=== PATIENT | male | born 1940 | race Caucasian/White ===

== ENCOUNTER 2016-12-26 02:28 | Emergency (ER) | payer OTHER ==
[~2016-12-26] VITALS: Ht 177.8 cm; Wt 87.5 kg
[~2016-12-26 02:28] MED LIST: ADULT LOW DOSE81 MG PO; ASPIRIN BUFFER325 MG PO; ASPIRIN325 PO; AZOR 5-40 MG T1 EACH PO; B12INJ; CARDIZEM CD240 MG PO; CEFTIN 250 MG250 MG PO; COMBIVENT IN; COREG CR20 MG PO; COREG CR40 MG PO; COREG CR80 MG PO; COUMADIN 5 MG TA5 M1 PO; FOLIC ACID 40400 MCG PO; FOLIC ACID0.8 MG PO; FUROSEMIDE 40 M40 M1 PO; FUROSEMIDE 80 M80 M1; GLUCOPHAGE500 MG; HYDROCODON-ACE1 EAC1 PO; K-DUR 20 MEQ T20 MEQ PO; LIPITOR40 MG PO; LISINOPRIL10 MG PO; LIVALO2 MG PO; NEXIUM40 MG PO; POTASSIUM20 PO; PRADAXA150 MG PO; TEKTURNA HCT 31 EACH PO; VENTOLIN HFA 1818 GM INH; VITAMIN B-12500 MCG PO; VITAMIN D35000 UNI1 PO; VITAMIN E400 UNIT PO; ZOFRAN ODT4 MG PO; ZPAK PO
[2016-12-26] MEDS ORDERED: COZAAR 25 MG TA25 M1 PO (02:42)
[2016-12-26] MEDS ORDERED: METFORMIN HCL500 MG PO (02:42)
[2016-12-26] MEDS ORDERED: ALLOPURINOL 30300 M2 PO (02:42)
[2016-12-26] MEDS ORDERED: POTASSIUM CHLO10 MEQ PO (02:42)
[2016-12-26] MEDS ORDERED: LASIX 40 MG TAB40 M2 PO (02:42)
[2016-12-26] MEDS ORDERED: FLOVENT HFA 1110 MCG INH (02:44)
[2016-12-26] MEDS ORDERED: BYSTOLIC 5 MG5 MG PO (02:45)
[2016-12-26] MEDS ORDERED: AMOXICILLIN 50500 M1 PO (02:57)
[2016-12-26] MEDS ORDERED: ULTRAM 50MG TAB50 MG PO (02:57)
== END 2016-12-26 03:25 | disposition home or self-care (01) ==
LOC: ER 02:28
DX: H66.92 Otitis media, unspecified, left ear (principal); I11.0 Hypertensive heart disease with heart failure; I50.9 Heart failure, unspecified; Z98.890 Other specified postprocedural states; I48.91 Unspecified atrial fibrillation; Z88.2 Allergy status to sulfonamides

== ENCOUNTER 2017-02-10 14:43 | Inpatient (IN) | payer OTHER ==
[~2017-02-10] VITALS: Ht 180.3 cm; Wt 97.1 kg
--- NOTE | ~2017-02-10 | EKG ---
[address] [place] [address] ELECTROCARDIOGRAM REPORT Name: TK RODRIGUEZ Room #: 448-P ADM IN M.R.#: [id number] Admission: 02/10/17 Attend Phys: Cr Sales DO Discharge: Date of : 44 Report #: [id number] THIS REPORT FOR: //name// [facility] ED Test Date: 2017-02-10 Test Time: 15:09:44 Pat Name: TK RODRIGUEZ Department: Room: [facility] Gender: M Driver'S License Reviewing Officer: Lino REAGAN : 1940 Requested By: Temitope Herzog Order Number: [id number] MD: Blayne Lambert Measurements Intervals [place] Rate: 114 P: [place]: QRS: 108 QRSD: 104 T: 9 QT: 350 QTc: 483 Interpretive Statements Atrial fibrillation Right axis deviation Borderline prolonged QT interval Baseline wander in lead(s) V4 Compared to ECG 06/02/2013 03:04:55 Right-axis deviation now present Electronically Signed On 02-11-2017 10:10:05 CDT by Blayne Lambert [email or web address] <ELECTRONICALLY SIGNED> By: Blayne Lambert MD, [facility] 02/11/17 1010 1509 1509 Blayne Lambert MD, [facility] /EPI
--- NOTE | ~2017-02-10 | 2DMMODE ---
[place] [address] [facility] [place] [address] 2 D/M-MODE ECHOCARDIOGRAM Name: JENNIFERTK IZQUIERDO Room #: 448-P ADM IN M.R.#: [id number] Admission: 02/10/17 Attend Phys: Cr Sales, Discharge: Date of : 44 Date of Service: 02/11/17 1324 Report #: [id number] THIS REPORT FOR: //name// APPROVED REPORT Study performed: 02/11/2017 11:02:14 EXAM: Comprehensive 2D, Doppler, and color-flow Echocardiogram Patient Location: Bedside Room #: [facility] Status: on-call Other Information Study Quality: Good Risk Factors: Cardiac Risk Factors: SOB, HTN Indications Pulmonary Hypertension Atrial Fibrillation Hx. MV Repair 2D Dimensions LVEF(%): 41.62 (>50%) IVSd: 13.11 (7-11mm) LVOT Diam: 20.00 (18-24mm) LVDd: 42.19 mm PWd: 11.07 (7-11mm) Ascending Ao: 30.70 (22-36mm) LVDs: 33.68 (25-40mm) Aortic Root: 35.30 mm Dent's LVEF: 41.62 % Volumes Left Atrial Volume (Systole) Single Plane 4CH: 110.75 mL Single Plane 2CH: 113.13 mL LA ESV Index: 54.00 mL/m2 LV Strain GL Strain(%): 0.00 Mitral Valve MV Max Ricardo.: 1.80 m/s MV Mean Ricardo.: 1.03 m/s MV PHT: 124.31 ms MVA (PHT): 1.77 cm2 [facility] [place] [address] [place] [address] 2 D/M-MODE ECHOCARDIOGRAM Name: TK RODRIGUEZ Room #: 448-P [facility] IN ..#: [id number] Admission: 02/10/17 Attend Phys: Cr Sales, Discharge: Date of : 44 Date of Service: 02/11/17 1324 Report #: [id number] Pulmonary Valve PV Peak Ricardo.: 0.91 m/s PV Peak Gr.: 3.31 mmHg DE End Vmax: 1.83 m/s Tricuspid Valve TR Peak Ricardo.: 3.48 m/s RAP Estimate: 15.00 mmHg TR Peak Gr.: 48.69 mmHg PA Pressure: 64.00 mmHg TV Max P.00 mmHg Left Ventricle The left ventricle is normal size. There is normal LV segmental wall motion. Mild concentric left ventricular hypertrophy. Left ventricular systolic function is normal. The left ventricular ejection fraction is within the normal range. LVEF is 45-50%. This study is not technically sufficient to allow evaluation of the LV diastolic function due to atrial fibrillation. Right Ventricle Right ventricle is dilated. Right ventricular systolic function is reduced. Atria Left atrium is dilated. Right atrium is dilated. Aortic Valve Mild aortic valve calcification Trace aortic regurgitation. There is no aortic valvular stenosis. Mitral Valve Annuloplasty ring is noted in the mitral position. Moderate mitral regurgitation. Calculated mitral valve area is 1.8 cm2 with maximum pressure gradient of 16 mmHg and mean pressure gradient of 6 mmHg. Tricuspid Valve The tricuspid valve is normal in structure. Severe tricuspid regurgitation. Pulmonic Valve The pulmonary valve is normal in structure. Pulmonic valve is grossly normal in structure. Mild to moderate pulmonic regurgitation. Great Vessels The aortic root is normal in size. IVC is dilated and collapses [facility] [address] [place] [address] 2 D/M-MODE ECHOCARDIOGRAM Name: TK RODRIGUEZ Room #: 448-P [facility] IN M.R.#: [id number] Admission: 02/10/17 Attend Phys: Cr Sales, Discharge: Date of : 44 Date of Service: 02/11/17 1324 Report #: [id number] <50% with inspiration. Pericardium There is no pericardial effusion. <Conclusion> There is normal LV segmental wall motion. Left ventricular systolic function is normal. EF 45-50% Right ventricle is dilated. Both atria are dilated. Mild aortic valve calcification; no aortic valvular stenosis, trace insufficiency. Annuloplasty ring is noted in the mitral position. Moderate mitral regurgitation and stenosis. Calculated mitral valve area is 1.8 cm2 with maximum pressure gradient of 16 mmHg and mean pressure gradient of 6 mmHg. Pulmonary artery pressure of 55-60mmHg There is no pericardial effusion. <ELECTRONICALLY SIGNED> By: Blayne Lambert MD, [facility] 02/11/17 1324 23 23 Blayne Lambert MD, [facility] /INF
--- NOTE | ~2017-02-10 | HC ---
[facility] [place] [address] [place] [address] CONSULTATION Name: TK RODRIGUEZ Room #: 448-P ADM IN M.R.#: [id number] Admission: 02/10/17 Attend Phys: Cr Sales DO Discharge: Date of : 42 Report #: [id number] THIS REPORT FOR: //name// CC: Donaldo Mac HISTORY OF PRESENT ILLNESS: The patient is a 76-year-old gentleman with a history of hypertension and remote mitral valve repair. He has a history of permanent atrial fibrillation, maintained on a rate control strategy as well as anticoagulant therapy. He now presents with progressive lower extremity edema and exertional breathlessness. This is despite intensification of his outpatient diuretic regimen. He denies orthopnea or paroxysmal nocturnal dyspnea. He has some progressive like pain and has been evaluated in the emergency department with a venous Doppler, which was negative for deep venous thrombosis and a left leg arterial Doppler, which demonstrated no significant occlusive arterial disease. There has been some question about compliance with his pharmacologic regimen. No chest heaviness or pressure. His last echocardiogram from our office in 05/2015 demonstrated an ejection fraction of 40-45%, mild to moderate mitral insufficiency and moderate mitral stenosis, pulmonary artery pressure is approximately 70. A stress study in 11/2015 was nonischemic with an ejection fraction at 56%. He reports blood pressure and blood sugar readings have been well controlled. No history of near syncope or syncope. No recent bleeding problems with warfarin. ALLERGIES: Include SULFA. He has intolerance to ATORVASTATIN and CRESTOR. MEDICATIONS: Include potassium 10 mEq daily, losartan 25 mg daily, allopurinol 300 mg daily, metformin 500 mg twice daily, Flonase, aspirin 81 mg daily, Lasix, warfarin 5 mg daily, Nexium 40 mg daily, Bystolic 10 mg daily, alprazolam 0.25 mg as needed, colchicine 0.6 mg for gout. PAST MEDICAL HISTORY: His past history and medical records have been reviewed and include a history of mitral valve repair, permanent atrial fibrillation, COPD, predominantly right-sided congestive heart failure, dyslipidemia and cholecystectomy. SOCIAL HISTORY: He is a former smoker. FAMILY HISTORY: Mother at 55 with a stroke. REVIEW OF SYSTEMS: All systems negative except as that noted above. PHYSICAL EXAMINATION: GENERAL: A pleasant gentleman in no distress. VITAL SIGNS: Blood pressure is 140/90, heart rate is 72 and irregular, saturations are 95%. [address] [address] CONSULTATION Name: TK RODRIGUEZ Room #: 448-P [facility] IN .R.#: [id number] Admission: 02/10/17 Attend Phys: Cr Sales DO Discharge: Date of : 44 Report #: [id number] HEENT: There are neither xanthelasma, subcutaneous xanthomata, oral mucosal or digital cyanosis or kyphoscoliosis present. CHEST: Clear to auscultation and percussion. CARDIAC: Irregularly irregular rhythm with an increased pulmonic closure sound, there is a soft systolic murmur at the left sternal border. ABDOMEN: Soft and nontender. EXTREMITIES: Reveal pitting edema bilaterally. NECK: There is some superficial skin breakdown and serous drainage and weeping. NEUROLOGIC: Alert with a nonfocal exam. LABORATORY DATA: EKG: Atrial fibrillation with a moderate ventricular response. Sodium is 135, potassium 4.6, creatinine 1.1. ProBNP of 4000. INR of 2.1. White count 10.3, hemoglobin 15, hematocrit 46, platelet count 127. Chest x-ray demonstrates no acute process in the chest. IMPRESSION: 1. Predominantly right-sided heart failure; combined systolic and diastolic failure. 2. Severe pulmonary hypertension, longstanding. 3. Chronic obstructive pulmonary disease. 4. Hypertension. 5. Permanent atrial fibrillation. 6. Remote mitral valve repair. 7. Hypercoagulable condition. 8. Dyslipidemia. 9. Anxiety disorder. RECOMMENDATIONS: 1. Echocardiogram with Doppler. 2. Continued anticoagulant therapy (INR 2-3 range). 3. Intravenous furosemide. 4. Dietary salt restriction. 5. Thyroid function studies if these have not been recently obtained. Thank you for asking me to participate in the patient's care. <ELECTRONICALLY SIGNED> By: Blayne Lambert MD, FACC 02/12/17 1050 [id number] 0009 Blayne Lambert MD, FACC /nt
[~2017-02-10 14:43] MED LIST changes: +ALLOPURINOL 30300 M2 PO; +AMOXICILLIN 50500 M1 PO; +BYSTOLIC 5 MG5 MG PO; +COZAAR 25 MG TA25 M1 PO; +FLOVENT HFA 1110 MCG INH; +LASIX 40 MG TAB40 M2 PO; +METFORMIN HCL500 MG PO; +POTASSIUM CHLO10 MEQ PO; +ULTRAM 50MG TAB50 MG PO
[2017-02-10 14:44] VITALS: BP 140/92
[2017-02-10 15:15] LABS: ABSOLUTE NEUTROPHILS 7.5 thou/uL (1.4-8.2); BASOPHILS 1.1 % (0.0-2.0); HEMATOCRIT 46.3 % (42.0-52.0); HEMOGLOBIN 15.5 gm/dL (14.0-18.0); LYMPHOCYTES 18.6 % (24.0-44.0); MCH 30.8 pg (26.0-34.0); MCHC 33.4 g/dL (28.0-37.0); MONOCYTES 6.3 % (1.0-8.0); PLATELET COUNT 127 thou/uL (150-400); RBC 5.03 mil/uL (4.50-6.00); WBC 10.3 thou/uL (4.0-11.0)
[2017-02-10 15:19] LABS: MANUAL DIFF NO
[2017-02-10 15:29] LABS: CALCIUM 9.1 mg/dL (8.5-10.1); CREATININE 1.1 mg/dL (0.7-1.3); POTASSIUM 4.6 mmol/L (3.5-5.1)
[2017-02-10 15:32] LABS: INR 2.1; PROTIME 21.4 Seconds (9.3-11.4)
[2017-02-10 15:43] LABS: ALBUMIN 3.5 g/dL (3.4-5.0); TOTAL BILIRUBIN 1.1 mg/dL (<0.1-1.0); TOTAL PROTEIN 7.4 g/dL (6.4-8.2); TROPONIN-I 0.05 ng/mL (<0.04-0.07)
[2017-02-10 17:45] LABS: URINE BILIRUBIN NEGATIVE (Negative); URINE BLOOD NEGATIVE (Negative); URINE COLOR YELLOW; URINE GLUCOSE-RANDOM* NEGATIVE (Negative); URINE KETONES NEGATIVE (Negative); URINE NITRITE NEGATIVE (Negative); URINE PROTEIN (DIPSTICK) TRACE (Negative)
[2017-02-10] MEDS ORDERED: XANAX 0.25 MG0.25 MG PO (17:46)
[2017-02-10] MEDS ORDERED: KRILL OIL 3001 EACH PO (17:48)
[2017-02-10] MEDS ORDERED: B-COMPLEX-VITA1 EACH PO (17:49)
[2017-02-10] MEDS ORDERED: VITAMIN E400 UNIT PO (17:50)
[2017-02-10] MEDS ORDERED: VITAMIN D3400 UNIT PO (17:50)
[2017-02-10] MEDS ORDERED: COLCHICINE0.6 MG PO (17:51)
[2017-02-10 19:04] VITALS: BP 123/65
[2017-02-11 03:49] LABS: ABSOLUTE NEUTROPHILS 6.2 thou/uL (1.4-8.2); BASOPHILS 0.5 % (0.0-2.0); EOSINOPHILS 1.8 % (0.0-3.0); HEMATOCRIT 42.6 % (42.0-52.0); HEMOGLOBIN 14.1 gm/dL (14.0-18.0); LYMPHOCYTES 13.6 % (24.0-44.0); MCH 30.2 pg (26.0-34.0); MCHC 33.1 g/dL (28.0-37.0); MCV 91.2 fL (80.0-100.0); MONOCYTES 5.8 % (1.0-8.0); PLATELET COUNT 127 thou/uL (150-400); POLYS 78.3 % (36.0-66.0); RBC 4.67 mil/uL (4.50-6.00); WBC 7.9 thou/uL (4.0-11.0)
[2017-02-11 03:53] LABS: MANUAL DIFF NO
[2017-02-11 03:54] LABS: INR 1.9; PROTIME 19.5 Seconds (9.3-11.4)
[2017-02-11 04:00] LABS: CALCIUM 8.6 mg/dL (8.5-10.1); CREATININE 1.2 mg/dL (0.7-1.3); POTASSIUM 3.7 mmol/L (3.5-5.1); TOTAL BILIRUBIN 1.2 mg/dL (<0.1-1.0); TOTAL PROTEIN 6.4 g/dL (6.4-8.2)
[2017-02-11 05:36] VITALS: BP 106/73
[2017-02-11 08:30] VITALS: BP 140/73
[2017-02-11 10:03] LABS: CALCIUM 8.9 mg/dL (8.5-10.1); CREATININE 1.1 mg/dL (0.7-1.3); POTASSIUM 3.9 mmol/L (3.5-5.1)
[2017-02-11] MEDS ORDERED: CIPRODEX OTIC7.5 ML OTIC ×2 (10:40→10:43)
[2017-02-11 16:33] VITALS: BP 117/64
[2017-02-11 19:07] LABS: GLYCOHEMOGLOBIN (HGB A1C) 8.2 % (4.8-5.6)
[2017-02-11 19:48] VITALS: BP 122/78
[2017-02-12 05:09] VITALS: BP 97/74
[2017-02-12 05:36] LABS: ABSOLUTE NEUTROPHILS 7.4 thou/uL (1.4-8.2); BASOPHILS 0.6 % (0.0-2.0); EOSINOPHILS 2.2 % (0.0-3.0); HEMATOCRIT 42.7 % (42.0-52.0); HEMOGLOBIN 14.1 gm/dL (14.0-18.0); LYMPHOCYTES 14.6 % (24.0-44.0); MCH 29.9 pg (26.0-34.0); MCV 90.6 fL (80.0-100.0); PLATELET COUNT 115 thou/uL (150-400); POLYS 76.6 % (36.0-66.0); RBC 4.71 mil/uL (4.50-6.00); RDW 18.6 % (10.5-14.5); WBC 9.7 thou/uL (4.0-11.0)
[2017-02-12 05:41] LABS: MANUAL DIFF NO
[2017-02-12 05:42] LABS: CALCIUM 8.8 mg/dL (8.5-10.1); CREATININE 1.1 mg/dL (0.7-1.3); POTASSIUM 3.9 mmol/L (3.5-5.1)
[2017-02-12 08:00] VITALS: BP 128/88
[2017-02-12 09:36] LABS: CALCIUM 8.9 mg/dL (8.5-10.1); POTASSIUM 3.9 mmol/L (3.5-5.1)
[2017-02-12 16:00] VITALS: BP 113/57
[2017-02-12 20:31] VITALS: BP 112/81
[2017-02-13 03:31] VITALS: BP 109/54
[2017-02-13 04:59] LABS: ABSOLUTE NEUTROPHILS 6.4 thou/uL (1.4-8.2); BASOPHILS 0.6 % (0.0-2.0); EOSINOPHILS 2.8 % (0.0-3.0); HEMATOCRIT 41.7 % (42.0-52.0); HEMOGLOBIN 13.9 gm/dL (14.0-18.0); MCH 30.2 pg (26.0-34.0); MCHC 33.2 g/dL (28.0-37.0); MCV 90.8 fL (80.0-100.0); MONOCYTES 6.6 % (1.0-8.0); PLATELET COUNT 111 thou/uL (150-400); RDW 18.6 % (10.5-14.5); WBC 8.5 thou/uL (4.0-11.0)
[2017-02-13 05:03] LABS: MANUAL DIFF NO
[2017-02-13 05:09] LABS: CALCIUM 8.9 mg/dL (8.5-10.1); CREATININE 1.2 mg/dL (0.7-1.3); POTASSIUM 3.6 mmol/L (3.5-5.1)
[2017-02-13 08:33] LABS: INR 1.6; PROTIME 16.1 Seconds (9.3-11.4)
[2017-02-13 09:10] VITALS: BP 112/62
[2017-02-13 17:27] VITALS: BP 103/65
[2017-02-13 20:16] VITALS: BP 122/62
[2017-02-14 03:20] VITALS: BP 120/65; BP 143/68
[2017-02-14 06:19] LABS: CALCIUM 9.4 mg/dL (8.5-10.1); CREATININE 1.2 mg/dL (0.7-1.3); POTASSIUM 3.4 mmol/L (3.5-5.1)
[2017-02-14 06:32] LABS: INR 1.5; PROTIME 15.7 Seconds (9.3-11.4)
[2017-02-14 07:38] VITALS: BP 116/67
[2017-02-14 09:46] VITALS: BP 116/67
[2017-02-14] MEDS ORDERED: DEMADEX20 MG PO (09:48)
== END 2017-02-14 11:15 | disposition home or self-care (01) | DRG 292 ==
LOC: ER 14:43 → 4S 17:10 → EROBS 17:10 → 4S 18:42
PROVIDERS: Family Medicine; Internal Medicine; Internal Medicine Geriatric Medicine; Nurse Practitioner Adult Health; Nurse Practitioner Family
DX: I11.0 Hypertensive heart disease with heart failure (principal); E44.1 Mild protein-calorie malnutrition; D68.59 Other primary thrombophilia; I27.2 Other secondary pulmonary hypertension; R60.0 Localized edema; I50.43 Acute on chronic combined systolic (congestive) and diastolic (congestive) heart failure; E78.5 Hyperlipidemia, unspecified; R06.01 Orthopnea; I48.2 Chronic atrial fibrillation; J44.9 Chronic obstructive pulmonary disease, unspecified; F41.9 Anxiety disorder, unspecified; D69.6 Thrombocytopenia, unspecified; E11.9 Type 2 diabetes mellitus without complications; I34.0 Nonrheumatic mitral (valve) insufficiency; E87.6 Hypokalemia; Z79.01 Long term (current) use of anticoagulants; Z79.899 Other long term (current) drug therapy; Z68.29 Body mass index [BMI] 29.0-29.9, adult; Z87.891 Personal history of nicotine dependence; Z90.49 Acquired absence of other specified parts of digestive tract; Z88.2 Allergy status to sulfonamides; Z88.8 Allergy status to other drugs, medicaments and biological substances
CPT/HCPCS: 10100

== ENCOUNTER 2017-02-23 22:18 | Inpatient (IN) | payer OTHER ==
[~2017-02-23] VITALS: Ht 175.3 cm; Wt 90.1 kg
--- NOTE | ~2017-02-23 | EKG ---
[address] [address] ELECTROCARDIOGRAM REPORT Name: JENNIFERTK Chase Room #: 216-P ADM IN M.R.#: [id number] Admission: 02/23/17 Attend Phys: Robby Bernard MD Discharge: Date of : 44 Report #: [id number] THIS REPORT FOR: //name// [facility] ED Test Date: 2017-02-23 Test Time: 23:05:35 Pat Name: TK RODRIGUEZ Department: Room: 216 Gender: M Bed Setter: [email or web address] : 1940 Requested By: Kaushik Nair Order Number: [id number] MD: Lupillo Shah Measurements Intervals [place] Rate: 118 P: [place]: QRS: 108 QRSD: 112 T: -19 QT: 338 QTc: 474 Interpretive Statements Atrial fibrillation Paired ventricular premature complexes Incomplete right bundle branch block Borderline ST depression, lateral leads Compared to ECG 02/10/2017 15:09:44 Ventricular premature complex(es) now present Incomplete right bundle-branch block now present ST (T wave) deviation now present Right-axis deviation no longer present Electronically Signed On 02-24-2017 13:59:41 CDT by Lupillo Shah [email or web address] <ELECTRONICALLY SIGNED> By: Lupillo Shah MD 02/24/17 1359 04 04 Lupillo Shah MD /EPI
--- NOTE | ~2017-02-23 | EKG ---
[address] [address] ELECTROCARDIOGRAM REPORT Name: TK RODRIGUEZ TIMBO Room #: 216-P ADM IN M.R.#: [id number] Admission: 02/23/17 Attend Phys: Robby Bernard MD Discharge: Date of : 44 Report #: [id number] THIS REPORT FOR: //name// [facility] ED Test Date: 2017-02-24 Test Time: 00:09:38 Pat Name: TK RODRIGUEZ Department: Room: 216 Gender: M Quality System Manager: [id number] : 1940 Requested By: Kaushik Nair Order Number: [id number] MD: Lupillo Shha Measurements Intervals [place] Rate: 93 P: [place]: QRS: 109 QRSD: 103 T: 50 QT: 388 QTc: 483 Interpretive Statements Atrial fibrillation Left posterior fascicular block Borderline T wave abnormalities Compared to ECG 02/10/2017 15:09:44 Left posterior fascicular block now present T-wave abnormality now present Right-axis deviation no longer present Electronically Signed On 02-24-2017 13:59:58 CDT by Lupillo Shah [email or web address] <ELECTRONICALLY SIGNED> By: Lupillo Shah MD 02/24/17 1359 Lupillo Shah MD /EPI
[~2017-02-23 22:18] MED LIST changes: +B-COMPLEX-VITA1 EACH PO; +CIPRODEX OTIC7.5 ML OTIC; +COLCHICINE0.6 MG PO; +DEMADEX20 MG PO; +KRILL OIL 3001 EACH PO; +VITAMIN D3400 UNIT PO; +XANAX 0.25 MG0.25 MG PO
[2017-02-23 22:19] VITALS: BP 174/95
[2017-02-23 23:18] LABS: HEMATOCRIT 45.6 % (42.0-52.0); MCH 29.8 pg (26.0-34.0); MCHC 32.8 g/dL (28.0-37.0); MCV 90.9 fL (80.0-100.0); PLATELET COUNT 258 thou/uL (150-400); RBC 5.01 mil/uL (4.50-6.00); RDW 18.3 % (10.5-14.5); WBC 14.7 thou/uL (4.0-11.0)
[2017-02-23 23:19] LABS: MANUAL DIFF YES
[2017-02-23 23:24] LABS: CALCIUM 9.8 mg/dL (8.5-10.1); CREATININE 1.4 mg/dL (0.7-1.3); POTASSIUM 4.4 mmol/L (3.5-5.1)
[2017-02-23 23:28] LABS: INR 1.9; TOTAL BILIRUBIN 2.1 mg/dL (<0.1-1.0); TOTAL PROTEIN 8.4 g/dL (6.4-8.2)
[2017-02-23 23:32] LABS: ABG SAMPLE TYPE ARTERIAL; BE(vivo) 5.2 mmol/L (-2 to +3); HCO3 25.9 mmol/L (22.0-26.0); LACTATE 3.41 mmol/L (0.5-2.0); O2(CT) 19.2 mL/dL (15.0-23.0); O2Hb 87.5 % (92.0-98.0); PCO2 28.1 mmHg (35.0-45.0); pH 7.583 (7.360-7.450); sO2 90.8 % (92.0-98.0); tCO2 26.8 mmol/L (24.0-30.0)
[2017-02-23 23:33] LABS: PO2 49.2 mmHg (80.0-100.0); STICK SITE L.RADIAL
[2017-02-23 23:47] LABS: ABSOLUTE NEUTROPHILS 12.2 thou/uL (1.4-8.2); ANISOCYTOSIS 2+; MACROCYTES 1+; TOTAL CELL COUNT 100
[2017-02-24] VITALS (7 sets, daily range): BP systolic 90–144; BP diastolic 50–74
[2017-02-24 04:16] LABS: URINE BILIRUBIN NEGATIVE (Negative); URINE BLOOD NEGATIVE (Negative); URINE COLOR YELLOW; URINE GLUCOSE-RANDOM* NEGATIVE (Negative); URINE KETONES NEGATIVE (Negative); URINE LEUKOCYTES-REFLEX NEGATIVE (Negative); URINE PROTEIN (DIPSTICK) 2+ (Negative); URINE SPECIFIC GRAVITY 1.015 (1.003-1.035); URINE UROBILINOGEN 0.2 E.U./dl (0.2-1.0)
[2017-02-24 04:33] LABS: SQUAMOUS 0-3 Few /LPF (0-3)
[2017-02-24 04:34] LABS: CASTS None Seen /LPF (None Seen); CRYSTALS None Seen /LPF (None Seen); URINE RBC 0-2 Rare /HPF (0-2); URINE WBC-REFLEX 0-5 Rare /HPF (0-5)
[2017-02-25 04:21] VITALS: BP 111/59
[2017-02-25 08:05] VITALS: BP 126/72
[2017-02-25 09:41] LABS: MCHC 33.5 g/dL (28.0-37.0); MCV 89.4 fL (80.0-100.0); RBC 4.03 mil/uL (4.50-6.00); RDW 17.9 % (10.5-14.5); WBC 9.2 thou/uL (4.0-11.0)
[2017-02-25 09:44] LABS: HEMOGLOBIN 12.1 gm/dL (14.0-18.0)
[2017-02-25 09:50] LABS: CALCIUM 8.8 mg/dL (8.5-10.1)
[2017-02-25 09:52] LABS: INR 1.5; PROTIME 15.1 Seconds (9.3-11.4)
[2017-02-25] MEDS ORDERED: MUCINEX DM TABL1 TA1 PO (11:49)
[2017-02-25] MEDS ORDERED: DOXYCYCLINE 10100 MG PO (11:52)
[2017-02-25] MEDS ORDERED: CEFPODOXIME PR200 M1 PO (11:52)
[2017-02-25 11:56] VITALS: BP 126/72
== END 2017-02-25 12:15 | disposition home or self-care (01) | DRG 871 ==
LOC: ER 22:18 → EROBS 23:35 → 2N 23:35
PROVIDERS: Emergency Medicine; Internal Medicine; Nurse Practitioner Acute Care
DX: A41.9 Sepsis, unspecified organism (principal); J18.9 Pneumonia, unspecified organism; J96.01 Acute respiratory failure with hypoxia; G92 Toxic encephalopathy; I50.42 Chronic combined systolic (congestive) and diastolic (congestive) heart failure; J44.0 Chronic obstructive pulmonary disease with (acute) lower respiratory infection; I27.2 Other secondary pulmonary hypertension; I48.2 Chronic atrial fibrillation; E78.5 Hyperlipidemia, unspecified; I11.0 Hypertensive heart disease with heart failure; E11.9 Type 2 diabetes mellitus without complications; Z88.2 Allergy status to sulfonamides; Z87.891 Personal history of nicotine dependence; Z90.49 Acquired absence of other specified parts of digestive tract; Z79.82 Long term (current) use of aspirin; Z79.899 Other long term (current) drug therapy
CPT/HCPCS: 10081

== ENCOUNTER → 2017-04-03 | Outpatient (CLI) | payer OTHER ==
[~2017-04-03] MED LIST changes: +CEFPODOXIME PR200 M1 PO; +DOXYCYCLINE 10100 MG PO; +MUCINEX DM TABL1 TA1 PO
--- NOTE | ~2017-04-03 | PFR/MVV ---
[facility] [place] [address] PULMONARY FUNCTION MVV/REPORT Name: JENNIFERTK FRANKLINNIS Room #: [facility] [id number] Admission: 04/03/17 Attend Phys: Donaldo Fuentes MD, [facility] Discharge: Date of : 42 Report #: [id number] THIS REPORT FOR: //name// >> SPIROMETRY: (BTPS) Height: in cm Weight: lbs kg Exam Date: PRE-RX POST-RX PRED BEST %PRED BEST %PRED %CHG FVC LITERS . . . . . . FEV1 LITERS . . . . . . FEV1/FVC % . . . . . . CGX32-69% L/Sec . . . . . . PEF L/SEC . . . . . . FEF50/FIF50 UNITLESS . . . . . . MVV L/Min . . . f 1/Min . . . >> LUNG VOLUMES: (BTPS) PRE-RX POST-RX PRED AVG %PRED AVG %PRED %CHG VC Liters . . . . . . TLC Liters . . . . . . RV Liters . . . . . . RV/TLC % . . . . . . FRC PL Liters . . . . . . FRC N2 Liters . . . . . . ERV Liters . . . . . . IC Liters . . . . . . >> DIFFUSION: DLCO ml/Min/mmHg . . . . . . DL Henrry ml/Min/mmHg . . . . . . DLCO/VA ml/Min/mmHg . . . . . . VA Liters . . . . . . COMMENTS: COMMENTS: >> RESISTANCE: [facility] [address] [place] [address] PULMONARY FUNCTION MVV/REPORT Name: TK RODRIGUEZ Room #: REG BERLIN GomezAj#: [id number] Admission: 04/03/17 Attend Phys: Donaldo Fuentes MD, [facility] Discharge: Date of : 42 Report #: [id number] PRE-RX PRED AVG %PRED Raw Total cmH20/L/Sec . . . Raw Insp cmH20/L/Sec . . . Raw Exp cmH20/L/Sec . . . Raw cmH20/L/Sec . . . Gaw L/Sec/cmH20 . . . sRaw cmH20 Sec . . . sGaw l/cmH20 Sec . . . Vtq Liters . . . # = OUTSIDE 95% CONFIDENCE INTERVAL CALIBRATION: PRED: 3.00 ACTUAL: EXP 3.01 INSP 3.02 [facility]-OL06-02 [place] [address] N-1804-4 >> INTERPRETATION/IMPRESSION: CC: Donaldo Scott Spirometry revealed severe obstruction with improvement in FEV1 postbronchodilator. Total lung capacity within normal limits as well as residual volume. There is a severe diffusion defect. No prior study on chart. IMPRESSION: Severe obstructive lung disease with a severe diffusion defect. Clinical correlation recommended. By: Heron Barber MD /nt
== END ==
LOC: PUL 08:53
DX: J44.9 Chronic obstructive pulmonary disease, unspecified (principal)

== ENCOUNTER → 2018-02-06 | Outpatient (CLI) | payer OTHER | LOC: RAD 16:07 | DX: J98.11 Atelectasis (principal); J44.9 Chronic obstructive pulmonary disease, unspecified; J90 Pleural effusion, not elsewhere classified; R91.8 Other nonspecific abnormal finding of lung field; R53.83 Other fatigue ==

== ENCOUNTER → 2018-02-26 | Outpatient (CLI) | payer OTHER ==
[2018-02-26 10:01] LABS: ABSOLUTE NEUTROPHILS 6.5 thou/uL (1.4-8.2); BASOPHILS 1.5 % (0.0-2.0); EOSINOPHILS 3.3 % (0.0-3.0); HEMATOCRIT 43.5 % (42.0-52.0); HEMOGLOBIN 14.8 gm/dL (14.0-18.0); LYMPHOCYTES 16.8 % (24.0-44.0); MCH 32.3 pg (26.0-34.0); MONOCYTES 6.9 % (1.0-8.0); PLATELET COUNT 186 thou/uL (150-400); POLYS 71.5 % (36.0-66.0); RBC 4.58 mil/uL (4.50-6.00); RDW 20.1 % (10.5-14.5)
[2018-02-26 10:14] LABS: APTT 29.1 Seconds (24.5-32.8); INR 1.4
[2018-02-26 10:18] LABS: CREATININE 1.2 mg/dL (0.7-1.3); POTASSIUM 4.4 mmol/L (3.5-5.1)
[2018-02-26 11:23] LABS: ANISOCYTOSIS 2+; PLATELET ESTIMATE NORMAL
[2018-02-26 12:18] LABS: CLARITY SLIGHTLY CLOUDY; COLOR YELLOW; SOURCE RIGHT CHEST; TOTAL VOLUME 63 mL
[2018-02-26 12:23] LABS: SOURCE RIGHT CHEST
[2018-02-26 12:57] LABS: BF NUCLEATED CELLS 351; BF RBC 970
[2018-02-26 13:23] LABS: BF MACROPHAGE 16; BF NEUTROPHILS 2
[2018-02-27 14:06] LABS: BODY FLUID ALBUMIN 1.5 g/dL (()); BODY FLUID AMYLASE 33 U/L (()); BODY FLUID GLUCOSE 159 mg/dL (()); BODY FLUID LDH 85 IU/L (()); BODY FLUID PROTEIN 2.4 g/dL (())
== END | disposition home or self-care (01) ==
LOC: ULTRA 09:28
PROVIDERS: Internal Medicine Pulmonary Disease
DX: J90 Pleural effusion, not elsewhere classified (principal); R06.02 Shortness of breath; I50.9 Heart failure, unspecified; I48.91 Unspecified atrial fibrillation; Z79.01 Long term (current) use of anticoagulants; Z79.82 Long term (current) use of aspirin; Z88.2 Allergy status to sulfonamides; Z79.899 Other long term (current) drug therapy

== ENCOUNTER 2018-05-21 15:44 | Emergency (ER) | payer OTHER ==
[~2018-05-21] VITALS: Ht 180.3 cm; Wt 80.7 kg
[2018-05-21] MEDS ORDERED: FLOVENT HFA 4444 MCG INH (16:02)
[2018-05-21] MEDS ORDERED: METFORMIN HCL500 MG PO (16:03)
[2018-05-21] MEDS ORDERED: COZAAR 25 MG TA25 M1 PO (16:03)
[2018-05-21] MEDS ORDERED: LIVALO2 MG PO (16:03)
[2018-05-21] MEDS ORDERED: POTASSIUM20 PO (16:04)
[2018-05-21] MEDS ORDERED: DEMADEX20 MG PO (16:04)
[2018-05-21] MEDS ORDERED: XARELTO10 M1 PO (16:05)
[2018-05-21] MEDS ORDERED: XANAX 0.25 MG0.25 MG PO (16:06)
[2018-05-21] MEDS ORDERED: BYSTOLIC 5 MG5 M1 PO (16:06)
[2018-05-21] MEDS ORDERED: ONDANSETRON HCL4 M2 PO (16:06)
[2018-05-21] MEDS ORDERED: NASACORT10.8 ML NASAL (16:07)
[2018-05-21] MEDS ORDERED: ZYRTEC10 M5 PO (16:07)
[2018-05-21] MEDS ORDERED: METROCREAM45 GM TOP (16:17)
[2018-05-21] MEDS ORDERED: MELATONIN3 MG PO (16:17)
[2018-05-21 16:29] LABS: ABSOLUTE NEUTROPHILS 6.8 thou/uL (1.4-8.2); EOSINOPHILS 1.1 % (0.0-3.0); HEMATOCRIT 41.3 % (42.0-52.0); HEMOGLOBIN 13.9 gm/dL (14.0-18.0); LYMPHOCYTES 13.9 % (24.0-44.0); MCHC 33.5 g/dL (28.0-37.0); MCV 98.4 fL (80.0-100.0); MONOCYTES 8.4 % (1.0-8.0); PLATELET COUNT 192 thou/uL (150-400); POLYS 75.6 % (36.0-66.0)
[2018-05-21 16:36] LABS: CALCIUM 7.9 mg/dL (8.5-10.1); CREATININE 1.6 mg/dL (0.7-1.3); POTASSIUM 5.3 mmol/L (3.5-5.1)
[2018-05-21 16:42] LABS: ALBUMIN 4.1 g/dL (3.4-5.0); TOTAL BILIRUBIN 1.4 mg/dL (<0.1-1.0); TOTAL PROTEIN 8.2 g/dL (6.4-8.2)
[2018-05-21 16:47] LABS: APTT 32.9 Seconds (24.5-32.8); INR 1.9; PROTIME 19.4 Seconds (9.3-11.4)
== END 2018-05-21 18:37 | disposition home or self-care (01) ==
LOC: ER 15:44
PROVIDERS: Physician Assistant
DX: K62.5 Hemorrhage of anus and rectum (principal); E86.0 Dehydration; N18.9 Chronic kidney disease, unspecified; I48.91 Unspecified atrial fibrillation; E11.22 Type 2 diabetes mellitus with diabetic chronic kidney disease; I13.0 Hypertensive heart and chronic kidney disease with heart failure and stage 1 through stage 4 chronic kidney disease, or unspecified chronic kidney disease; I50.42 Chronic combined systolic (congestive) and diastolic (congestive) heart failure; J44.9 Chronic obstructive pulmonary disease, unspecified; K64.9 Unspecified hemorrhoids; Z90.49 Acquired absence of other specified parts of digestive tract; Z87.891 Personal history of nicotine dependence; Z88.2 Allergy status to sulfonamides; Z88.8 Allergy status to other drugs, medicaments and biological substances

== ENCOUNTER 2018-06-05 13:02 | Emergency (ER) | payer OTHER ==
[~2018-06-05] VITALS: Ht 177.8 cm; Wt 83.0 kg
--- NOTE | ~2018-06-05 | EKG ---
[address] [place] [address] ELECTROCARDIOGRAM REPORT Name: TK RODRIGUEZ [id number] Admission: 06/05/18 Attend Phys: Discharge: Date of : 44 Report #: [id number] THIS REPORT FOR: //name// [facility] ED Test Date: 2018-06-05 Test Time: 15:29:29 Pat Name: TK RODRIGUEZ Department: Room: Gender: Advisory Application Developer: carolinaed : 1940 Requested By: Chirag Torrez Order Number: [id number] MD: Lupillo Shah Measurements Intervals [place] Rate: 88 P: [place]: QRS: 122 QRSD: 103 T: 21 QT: 391 QTc: 473 Interpretive Statements Atrial fibrillation Borderline low voltage, extremity leads Probable right ventricular hypertrophy Compared to ECG 02/24/2017 00:09:38 Left posterior fascicular block no longer present T-wave abnormality no longer present Electronically Signed On 06-05-2018 17:44:37 CDT by Lupillo Shah [email or web address] <ELECTRONICALLY SIGNED> By: Lupillo Shah MD 06/05/18 1744 1529 1529 Lupillo Shah MD /EPI
[~2018-06-05 13:02] MED LIST changes: +BYSTOLIC 5 MG5 M1 PO; +FLOVENT HFA 4444 MCG INH; +MELATONIN3 MG PO; +METROCREAM45 GM TOP; +NASACORT10.8 ML NASAL; +ONDANSETRON HCL4 M2 PO; +XARELTO10 M1 PO; +ZYRTEC10 M5 PO
[2018-06-05 13:48] LABS: URINE BILIRUBIN NEGATIVE (Negative); URINE BLOOD NEGATIVE (Negative); URINE CLARITY CLEAR; URINE COLOR YELLOW; URINE GLUCOSE-RANDOM* NEGATIVE (Negative); URINE KETONES NEGATIVE (Negative); URINE LEUKOCYTES-REFLEX NEGATIVE (Negative); URINE NITRITE-REFLEX NEGATIVE (Negative); URINE PROTEIN (DIPSTICK) TRACE (Negative)
[2018-06-05 13:52] LABS: ABSOLUTE NEUTROPHILS 5.9 thou/uL (1.4-8.2); HEMATOCRIT 41.1 % (42.0-52.0); HEMOGLOBIN 13.6 gm/dL (14.0-18.0); LYMPHOCYTES 16.3 % (24.0-44.0); MCH 32.5 pg (26.0-34.0); MCHC 33.2 g/dL (28.0-37.0); MCV 97.8 fL (80.0-100.0); MONOCYTES 9.9 % (1.0-8.0); PLATELET COUNT 193 thou/uL (150-400); POLYS 70.8 % (36.0-66.0); RBC 4.21 mil/uL (4.50-6.00); RDW 18.2 % (10.5-14.5); WBC 8.3 thou/uL (4.0-11.0)
[2018-06-05 14:09] LABS: AMP/METHAMP Negative (Negative); BARBITURATES Negative (Negative); BENZODIAZEPINES Negative (Negative); COCAINE Negative (Negative); METHADONE Negative (Negative); OPIATES Negative (Negative); PCP Negative (Negative)
[2018-06-05 14:10] LABS: ANION GAP 3 mmol/L (7-16); BUN 26 mg/dL (7-18); CALCIUM 9.6 mg/dL (8.5-10.1); CHLORIDE 99 mmol/L (98-107); CO2 32 mmol/L (21-32); CREATININE 1.6 mg/dL (0.7-1.3); GLUCOSE 121 mg/dL (74-106); POTASSIUM 5.1 mmol/L (3.5-5.1); SODIUM 134 mmol/L (136-145)
[2018-06-05 14:15] LABS: ALBUMIN 3.8 g/dL (3.4-5.0); SALICYLATE < 2.8 mg/dL (2.8-20.0); SGOT 37 U/L (15-37); SGPT 31 U/L (30-65); TOTAL BILIRUBIN 1.4 mg/dL (<0.1-1.0); TOTAL PROTEIN 7.9 g/dL (6.4-8.2)
[2018-06-05] MEDS ORDERED: MILK THISTLE140 M2 PO (14:24)
[2018-06-05 14:26] LABS: ANISOCYTOSIS 1+; PLATELET ESTIMATE NORMAL
[2018-06-05 15:11] LABS: MAGNESIUM 1.6 mg/dL (1.8-2.4); TROPONIN-I <0.06 ng/mL (<0.06)
== END 2018-06-05 18:50 | disposition home or self-care (01) ==
LOC: ER 13:02
PROVIDERS: Emergency Medicine
DX: F34.9 Persistent mood [affective] disorder, unspecified (principal); N18.9 Chronic kidney disease, unspecified; J44.9 Chronic obstructive pulmonary disease, unspecified; F41.9 Anxiety disorder, unspecified; L20.81 Atopic neurodermatitis; I13.0 Hypertensive heart and chronic kidney disease with heart failure and stage 1 through stage 4 chronic kidney disease, or unspecified chronic kidney disease; I50.40 Unspecified combined systolic (congestive) and diastolic (congestive) heart failure; E11.22 Type 2 diabetes mellitus with diabetic chronic kidney disease; I48.91 Unspecified atrial fibrillation; Z90.49 Acquired absence of other specified parts of digestive tract

== ENCOUNTER 2018-06-23 18:54 | Inpatient (IN) | payer OTHER ==
[~2018-06-23] VITALS: Ht 180.3 cm; Wt 92.1 kg
--- NOTE | ~2018-06-23 | EKG ---
[place] [address] [facility] [place] [address] ELECTROCARDIOGRAM REPORT Name: TK RODRIGUEZ Room #: 243-P DIS IN M.R.#: [id number] Admission: 06/23/18 Attend Phys: Carmine Wall MD Discharge: 06/24/18 Date of : 44 Report #: [id number] THIS REPORT FOR: //name// [facility] ED Test Date: 2018-06-23 Test Time: 19:13:52 Pat Name: TK RODRIGUEZ Department: Room: [facility] Gender: M Quality Facilitator: TANIA : 1940 Requested By: Rosa Burks Order Number: [id number] MD: Blayne Lambert Measurements Intervals [place] Rate: 158 P: [place]: QRS: 130 QRSD: 96 T: -17 QT: 283 QTc: 459 Interpretive Statements Atrial fibrillation with rapid V-rate Occasional premature ventricular aberrantly conducted supraventricular complex Borderline low voltage, extremity leads Nonspecific ST and T wave abnormality Compared to ECG 06/05/2018 15:29:29 Nonspecific change in the ST and T-wave segments Electronically Signed On 06-25-2018 9:04:38 CDT by Blayne Lambert [email or web address] <ELECTRONICALLY SIGNED> By: Blayne Lambert MD, FACC 06/25/18903 12 12 Blayne Lambert MD, FAC /EPI
[~2018-06-23 18:54] MED LIST changes: +MILK THISTLE140 M2 PO
[2018-06-23 18:55] VITALS: BP 133/73
[2018-06-23 19:30] LABS: ABSOLUTE NEUTROPHILS 10.8 thou/uL (1.4-8.2); BASOPHILS 0.5 % (0.0-2.0); EOSINOPHILS 0.1 % (0.0-3.0); HEMATOCRIT 44.4 % (42.0-52.0); HEMOGLOBIN 14.3 gm/dL (14.0-18.0); LYMPHOCYTES 5.3 % (24.0-44.0); MCH 31.2 pg (26.0-34.0); MCHC 32.2 g/dL (28.0-37.0); MCV 97.1 fL (80.0-100.0); MONOCYTES 2.2 % (1.0-8.0); PLATELET COUNT 224 thou/uL (150-400); POLYS 91.9 % (36.0-66.0); RBC 4.57 mil/uL (4.50-6.00); RDW 18.2 % (10.5-14.5); WBC 11.7 thou/uL (4.0-11.0)
[2018-06-23 19:35] LABS: CALCIUM 9.6 mg/dL (8.5-10.1); CREATININE 1.6 mg/dL (0.7-1.3); POTASSIUM 5.4 mmol/L (3.5-5.1)
[2018-06-23 19:41] LABS: ALBUMIN 3.7 g/dL (3.4-5.0); DIRECT BILIRUBIN 0.9 mg/dL (<0.1-0.3); TOTAL BILIRUBIN 1.8 mg/dL (<0.1-1.0); TOTAL PROTEIN 7.9 g/dL (6.4-8.2)
[2018-06-23 19:44] LABS: TROPONIN-I 0.08 ng/mL (<0.06)
[2018-06-23 20:29] LABS: ANISOCYTOSIS 1+
[2018-06-23 21:19] LABS: BE(vivo) -2.3 mmol/L (-2 to +3); HCO3 22.8 mmol/L (22.0-26.0); PCO2 40.1 mmHg (35.0-45.0); pH 7.372 (7.360-7.450); sO2 85.1 % (92.0-98.0)
[2018-06-23 21:20] LABS: PO2 50.7 mmHg (80.0-100.0)
[2018-06-23 22:33] LABS: FIBRINOGEN 269.5 mg/dL (210-360); INR 1.9; PROTIME 18.8 Seconds (9.3-11.4)
[2018-06-23 22:41] LABS: HCO3 20.2 mmol/L (22.0-26.0); PCO2 38.2 mmHg (35.0-45.0); PO2 76.4 mmHg (80.0-100.0); pH 7.341 (7.360-7.450); sO2 94.6 % (92.0-98.0)
[2018-06-23 23:10] VITALS: BP 129/91
[2018-06-24] VITALS (20 sets, daily range): BP systolic 48–98; BP diastolic 20–47
[2018-06-24 01:27] LABS: CALCIUM 8.4 mg/dL (8.5-10.1); POTASSIUM 4.6 mmol/L (3.5-5.1)
== END 2018-06-24 04:35 | DRG 871 ==
LOC: ER 18:54 → EROBS 21:01 → ICU 23:10
PROVIDERS: Emergency Medicine; Hospitalist; Nurse Practitioner Family
PROC: 5A09357 Assistance with Respiratory Ventilation, Less than 24 Consecutive Hours, Continuous Positive Airway Pressure (ICD-10-PCS; principal; 2018-06-23)
PROC: 5A09357 Assistance with Respiratory Ventilation, Less than 24 Consecutive Hours, Continuous Positive Airway Pressure (ICD-10-PCS; 2018-06-24)
DX: A41.9 Sepsis, unspecified organism (principal); R65.21 Severe sepsis with septic shock; J18.9 Pneumonia, unspecified organism; I50.43 Acute on chronic combined systolic (congestive) and diastolic (congestive) heart failure; J96.21 Acute and chronic respiratory failure with hypoxia; J44.1 Chronic obstructive pulmonary disease with (acute) exacerbation; J44.0 Chronic obstructive pulmonary disease with (acute) lower respiratory infection; N17.9 Acute kidney failure, unspecified; I11.0 Hypertensive heart disease with heart failure; I27.20 Pulmonary hypertension, unspecified; I48.2 Chronic atrial fibrillation; E86.0 Dehydration; E11.9 Type 2 diabetes mellitus without complications; Z51.5 Encounter for palliative care; Z95.2 Presence of prosthetic heart valve; Z90.49 Acquired absence of other specified parts of digestive tract; Z88.2 Allergy status to sulfonamides; Z88.8 Allergy status to other drugs, medicaments and biological substances; Z87.891 Personal history of nicotine dependence
CPT/HCPCS: 10203